=== PATIENT | female | born 1940 | race Caucasian/White ===

== ENCOUNTER 2017-01-25 12:08 | Emergency (ER) | payer OTHER ==
[~2017-01-25] VITALS: Ht 154.9 cm; Wt 58.9 kg
[~2017-01-25 12:08] MED LIST: ABAC1TAB7 PO; ABAC300T9 PO; ALBU18HF INH; AMOX1TAB64 PO; BENZ100C PO; FERR325T20 PO; FERR325T75 PO; FLUT1AER INH; GLIP5TAB10 PO; HYDR-3307 PO; INSU100I13 SQ; INSU100I18 SQ; IPRA3AMP NPPB; LACT10SO28 PO; NICO1PAT10 TD; OMEP40CA6 PO; PRAV20TA2 PO; PRED-402 PO; PROP10TA PO; RALT400T PO; SODI650T PO; SPIR50TA2 PO; TIOT18CA INH; [UNRECOGNIZED DRUG - CODE] PO
[2017-01-25] MEDS ORDERED: ALBUTEROL/IPRATROPIUM 2.5MG/0.5MG, 3 ML NPPB SCH (13:00)
[2017-01-25 14:01] LABS: BLOOD UREA NITROGEN 12 mg/dL (7-18)
[2017-01-25 14:13] LABS: ANISOCYTOSIS 1+; POLYCHROMASIA 1+
[2017-01-25 14:14] LABS: OVALOCYTES 1+
[2017-01-25 14:15] LABS: LARGE PLATELETS 1+
[2017-01-25] MEDS ORDERED: ALBUTEROL/IPRATROPIUM 2.5MG/0.5MG, 3 ML ONE (15:29)
[2017-01-25 16:02] VITALS: BP 156/74
== END 2017-01-25 16:37 | disposition home or self-care (01) ==
LOC: ED 16:00
DX: J44.1 Chronic obstructive pulmonary disease with (acute) exacerbation (principal); E11.65 Type 2 diabetes mellitus with hyperglycemia; I10 Essential (primary) hypertension; Z88.8 Allergy status to other drugs, medicaments and biological substances
CPT/HCPCS: 36415; 71020; 80048; 82040; 83605; 85025; 87040; 93005; 94640; 99285; J7512; J7620

== ENCOUNTER → 2019-02-25 | Outpatient (CLI) | payer MEDICAID, MEDICARE ==
[~2019-02-25] MED LIST changes: +FERR325T18 PO; -FERR325T20 PO; -IPRA3AMP NPPB; +IPRA3AMP30 NPPB; +NICO-485 TD; +NICO-486 TD; -NICO1PAT10 TD; -PROP10TA PO; +PROP10TA16 PO; -SPIR50TA2 PO; +SPIR50TA4 PO
== END | disposition home or self-care (01) ==
LOC: RAD 14:24
PROVIDERS: ATTEND Nurse Practitioner Adult Health
DX: M79.89 Other specified soft tissue disorders (principal); M79.605 Pain in left leg

== ENCOUNTER 2019-10-30 11:54 | Inpatient (IN) | payer MEDICARE ==
[~2019-10-30] VITALS: Ht 154.9 cm; Wt 61.7 kg
[~2019-10-30 11:54] MED LIST changes: +CEFD300C37 PO; +FURO40TA6 PO; -HYDR-3307 PO; +HYDR-36 PO; +INSU100I11 SQ-INSULIN; +INSU100I13 SQ-INSULIN; +LIRA0.6P INJ; +OMEP-110 PO; +OMEP40CA42 PO; -OMEP40CA6 PO; +POTA99TA24 PO; +PROP20TA PO
--- NOTE | 2019-10-30 12:00 | NUR ---
pt BIB [facility] from home c/o s/o hematemesis today. pt was recently hospitalized for same. pt reports that she is feeling tired but denies pain. some nause, bu no vomiting at this time. Dr. Bernal at bedside for eval and reports that pt is guiac+. pt is pale warm and dry. HIV+
[2019-10-30] MEDS ORDERED: PANTOPRAZOLE 80 MG in SODIUM CHLORIDE 0.9% 100 ML IV SCH (12:30)
[2019-10-30] MEDS ORDERED: OCTREOTIDE 500 MCG in SODIUM CHLORIDE 0.9% 99 ML IV PRN (12:30)
[2019-10-30] MEDS ORDERED: PANTOPRAZOLE 80 MG in SODIUM CHLORIDE 0.9% 50 ML IVPB ONE (12:30)
[2019-10-30] MEDS ORDERED: CEFTRIAXONE PMX 1GM/50ML 50 ML IV ONE (12:30)
[2019-10-30] MEDS ORDERED: SODIUM CHLORIDE FLUSH 10ML SYR IVF ONE (12:30)
[2019-10-30] MEDS ORDERED: OCTREOTIDE 100MCG/ML, 1ML (0.1MG/ML) IV ONE (12:30)
[2019-10-30 12:32] LABS: MEAN CORPUSCULAR HEMOGLOBIN 29.8 pg (27.0-34.8); MEAN CORPUSCULAR HGB CONC 32.9 g/dL (32.4-35.8); MEAN CORPUSCULAR VOLUME 90.4 fL (80-100); MEAN PLATELET VOLUME 10.8 fL (7.4-10.4); PLATELET COUNT 102 x10^3/uL (130-400); RED CELL DISTRIBUTION WIDTH 16.3 % (9.6-15.2)
[2019-10-30 12:40] LABS: INTERNATIONAL NORMALIZED RATIO 1.07 (0.93-1.1); PROTHROMBIN TIME 11.3 Seconds (9.6-11.5)
[2019-10-30 12:43] LABS: ANION GAP 9 mmol/L (5-15); CALCIUM 6.8 mg/dL (8.5-10.1); CHLORIDE 113 mmol/L (98-107)
[2019-10-30] MEDS ORDERED: CEFTRIAXONE PMX 1GM/50ML 50 ML ONE (12:43)
--- NOTE | 2019-10-30 12:59 | NUR ---
pt is sleeping. easily arousable. ABX infusing
[2019-10-30 13:00] LABS: BASOPHILS # (AUTO) 0.04 x10^3/uL (0-0.1); BASOPHILS % (AUTO) 1 % (0-1); EOSINOPHILS # (AUTO) 0.04 x10^3/uL (0-0.4); EOSINOPHILS % (AUTO) 1 % (1-7); LYMPHOCYTES % (AUTO) 19 % (22-44); MD SCAN; MONOCYTES # (AUTO) 0.41 x10^3/uL (0.2-0.8); MONOCYTES % (AUTO) 7 % (2-9); NEUTROPHILS # (AUTO) 4.24 x10^3/uL (1.8-6.8); NEUTROPHILS % (AUTO) 73 % (42-75)
--- NOTE | 2019-10-30 13:02 | NUR ---
pt to be admitted. report to Mai JIMENEZ
[2019-10-30 13:03] LABS: ALANINE AMINOTRANSFERASE 26 U/L (12-78); ALKALINE PHOSPHATASE 228 U/L (45-117); BILIRUBIN,TOTAL 0.6 mg/dL (0.2-1.0); CREATININE 1.37 mg/dL (0.55-1.02); TOTAL PROTEIN 5.2 g/dL (6.4-8.2)
[2019-10-30] MEDS ORDERED: ONDANSETRON ODT 4 MG PO PRN (13:30)
[2019-10-30] MEDS ORDERED: ONDANSETRON 2MG/ML, 2ML IVPush PRN (13:30)
[2019-10-30] MEDS ORDERED: ACETAMINOPHEN 325 MG TABLET PO PRN (13:30)
--- NOTE | 2019-10-30 13:33 | NUR ---
TASK RN: REPORT TO TONY MISTRY ON MED TELE
[2019-10-30] MEDS ORDERED: HYDROcodone/APAP 10/325 MG TABLET PO PRN (14:00)
[2019-10-30] MEDS ORDERED: POTASSIUM CHLORIDE 20 MEQ TAB.ER.PRT PO ONE (15:07)
[2019-10-30] MEDS: INSULIN LISPRO 100 UNITS/ML, PEN SQ-INSULIN SCH ×2 (16:00→20:55)
[2019-10-30] MEDS: LACTOBACILLUS CHEW TABLET PO SCH ×2 (17:19→20:54)
[2019-10-30] MEDS: LACTATED RINGERS 1,000 ML IV SCH (17:24)
[2019-10-30 17:29] VITALS: BP 105/54
[2019-10-30] MEDS: PROPRANOLOL 20 MG TABLET PO SCH (17:58)
[2019-10-30 19:20] VITALS: BP 98/58
[2019-10-30] MEDS ORDERED: INSULIN GLARGINE 100 UNITS/ML, PEN SQ-INSULIN SCH ×2 (21:00)
[2019-10-30 22:38] LABS: MEAN CORPUSCULAR HEMOGLOBIN 29.6 pg (27.0-34.8); MEAN CORPUSCULAR VOLUME 89.9 fL (80-100); RED BLOOD COUNT 2.24 x10^6/uL (3.82-5.3); RED CELL DISTRIBUTION WIDTH 15.6 % (9.6-15.2)
[2019-10-30 22:54] LABS: PLATELET COUNT 70 x10^3/uL (130-400)
[2019-10-30 23:01] LABS: MD YES
[2019-10-30 23:08] LABS: EOS#(MANUAL) 0.06 x10^3/uL (0.0-0.4); EOS% (MANUAL) 2 % (1-7); LYMPH#(MANUAL) 0.51 x10^3/uL (1-3.4); LYMPHS% (MANUAL) 17 % (22-44); METAMYELOCYTES# (MANUAL) 0.03 x10^3/uL (0-0); METAMYELOCYTES% (MANUAL) 1 % (0-1); MONOS#(MANUAL) 0.03 x10^3/uL (0.3-2.7); MONOS% (MANUAL) 1 % (2-9); MYELOCYTES# (MANUAL) 0.03 x10^3/uL (0-0); MYELOCYTES% (MANUAL) 1 % (0-0); REACTIVE LYMPHS # (MANUAL) 0.18 x10^3/uL (0-0); REACTIVE LYMPHS % (MANUAL) 6 % (0-0); SEG#(MANUAL) 2.16 x10^3/uL (1.8-6.8); SEGS% (MANUAL) 72 % (42-75)
[2019-10-30 23:09] LABS: ANISOCYTOSIS 1+
[2019-10-30 23:10] LABS: <PLATELET ESTIMATE> DECREASED; GIANT PLATELETS 1+; POLYCHROMASIA 1+; TEAR DROPS 1+
[2019-10-31] VITALS (9 sets, daily range): BP systolic 93–113; BP diastolic 50–67
[2019-10-31] MEDS ORDERED: PANTOPRAZOLE 80 MG in SODIUM CHLORIDE 0.9% 100 ML IV ONE (03:00)
[2019-10-31] MEDS: PROPRANOLOL 20 MG TABLET PO SCH ×2 (05:19→18:14)
[2019-10-31] MEDS ORDERED: OMEPRAZOLE 20 MG CAPSULE.DR PO SCH (06:00)
[2019-10-31 06:07] LABS: CALCIUM 6.9 mg/dL (8.5-10.1); CHLORIDE 116 mmol/L (98-107)
[2019-10-31 06:08] LABS: MEAN CORPUSCULAR HEMOGLOBIN 29.7 pg (27.0-34.8); MEAN CORPUSCULAR VOLUME 87.3 fL (80-100); MEAN PLATELET VOLUME 10.6 fL (7.4-10.4); PLATELET COUNT 67 x10^3/uL (130-400); RED BLOOD COUNT 3.19 x10^6/uL (3.82-5.3); RED CELL DISTRIBUTION WIDTH 16.6 % (9.6-15.2)
[2019-10-31 06:14] LABS: % IRON SATURATION 18 % (20-55); ANION GAP 8 mmol/L (5-15); CREATININE 1.35 mg/dL (0.55-1.02); IRON LEVEL 47 mcg/dL (50-170); TOTAL IRON BINDING CAPACITY 255 mcg/dL (250-450)
[2019-10-31 06:16] LABS: MD YES
[2019-10-31 06:17] LABS: BAND#(MANUAL) 0.07 x10^3/uL; BANDS%(MANUAL) 2 % (0-7); EOS#(MANUAL) 0.04 x10^3/uL (0.0-0.4); EOS% (MANUAL) 1 % (1-7); LYMPH#(MANUAL) 0.84 x10^3/uL (1-3.4); LYMPHS% (MANUAL) 24 % (22-44); MONOS#(MANUAL) 0.25 x10^3/uL (0.3-2.7); MONOS% (MANUAL) 7 % (2-9); REACTIVE LYMPHS # (MANUAL) 0.11 x10^3/uL (0-0); REACTIVE LYMPHS % (MANUAL) 3 % (0-0); SEG#(MANUAL) 2.21 x10^3/uL (1.8-6.8); SEGS% (MANUAL) 63 % (42-75)
[2019-10-31 06:18] LABS: ANISOCYTOSIS 1+; OVALOCYTES 1+; POLYCHROMASIA 1+
[2019-10-31 06:19] LABS: <PLATELET ESTIMATE> DECREASED; LARGE PLATELETS 1+; TEAR DROPS 1+
[2019-10-31] MEDS: INSULIN LISPRO 100 UNITS/ML, PEN SQ-INSULIN SCH ×4 (07:00→19:52)
[2019-10-31] MEDS: LACTATED RINGERS 1,000 ML IV SCH (07:30)
[2019-10-31] MEDS ORDERED: DEXTROSE 50%, 50ML SYRINGE IVPush ONE (08:00)
[2019-10-31] MEDS ORDERED: POTASSIUM CHLORIDE 10% 40 MEQ/30 ML UDC PO ONE (08:00)
[2019-10-31] MEDS: POTASSIUM CHLORIDE 20 MEQ TAB.ER.PRT PO SCH (08:54)
[2019-10-31] MEDS: LACTOBACILLUS CHEW TABLET PO SCH ×3 (08:54→20:57)
[2019-10-31] MEDS: RALTEGRAVIR 400 MG TABLET PO SCH (08:54)
[2019-10-31] MEDS: LIRAGLUTIDE 1.2 MG SQ SCH (08:59)
[2019-10-31] MEDS: CEFTRIAXONE PMX 1GM/50ML 50 ML IV SCH (13:00)
[2019-10-31] MEDS: PANTOPRAZOLE 80 MG in SODIUM CHLORIDE 0.9% 100 ML IV SCH ×2 (13:00→22:42)
[2019-10-31] MEDS ORDERED: DEXTROSE 50%, 50ML SYRINGE IV ONE (17:00)
[2019-10-31] MEDS: D5%-0.45% NACL 1,000 ML IV SCH (18:14)
[2019-10-31] MEDS: OCTREOTIDE 500 MCG in SODIUM CHLORIDE 0.9% 99 ML IV PRN (22:42)
[2019-11-01 00:48] VITALS: BP 105/62
[2019-11-01] MEDS: PROPRANOLOL 20 MG TABLET PO SCH ×2 (05:33→17:28)
[2019-11-01 06:53] LABS: MEAN CORPUSCULAR HEMOGLOBIN 29.2 pg (27.0-34.8); MEAN CORPUSCULAR HGB CONC 33.6 g/dL (32.4-35.8); MEAN PLATELET VOLUME 10.6 fL (7.4-10.4); PLATELET COUNT 69 x10^3/uL (130-400); RED BLOOD COUNT 3.23 x10^6/uL (3.82-5.3); RED CELL DISTRIBUTION WIDTH 17.2 % (9.6-15.2)
[2019-11-01 06:55] LABS: ANION GAP 6 mmol/L (5-15); CALCIUM 6.6 mg/dL (8.5-10.1); CHLORIDE 118 mmol/L (98-107)
[2019-11-01 06:57] LABS: CREATININE 1.48 mg/dL (0.55-1.02)
[2019-11-01 07:05] VITALS: BP 112/61
[2019-11-01 07:16] LABS: BASOPHILS # (AUTO) 0.01 x10^3/uL (0-0.1); BASOPHILS % (AUTO) 0 % (0-1); EOSINOPHILS # (AUTO) 0.06 x10^3/uL (0-0.4); EOSINOPHILS % (AUTO) 2 % (1-7); LYMPHOCYTES # (AUTO) 1.07 x10^3/uL (1-3.4); LYMPHOCYTES % (AUTO) 31 % (22-44); MD SCAN; MONOCYTES # (AUTO) 0.46 x10^3/uL (0.2-0.8); MONOCYTES % (AUTO) 13 % (2-9); NEUTROPHILS # (AUTO) 1.87 x10^3/uL (1.8-6.8); NEUTROPHILS % (AUTO) 54 % (42-75)
[2019-11-01] MEDS: INSULIN LISPRO 100 UNITS/ML, PEN SQ-INSULIN SCH ×4 (07:54→20:09)
[2019-11-01] MEDS: LIRAGLUTIDE 1.2 MG SQ SCH (08:12)
[2019-11-01] MEDS: OCTREOTIDE 500 MCG in SODIUM CHLORIDE 0.9% 99 ML IV PRN ×2 (08:17→17:29)
[2019-11-01] MEDS: PANTOPRAZOLE 80 MG in SODIUM CHLORIDE 0.9% 100 ML IV SCH ×2 (08:17→17:29)
[2019-11-01] MEDS: RALTEGRAVIR 400 MG TABLET PO SCH (08:17)
[2019-11-01] MEDS: LACTOBACILLUS CHEW TABLET PO SCH ×3 (08:17→20:43)
[2019-11-01] MEDS: POTASSIUM CHLORIDE 20 MEQ TAB.ER.PRT PO SCH (08:18)
[2019-11-01] MEDS: CEFTRIAXONE PMX 1GM/50ML 50 ML IV SCH (12:41)
[2019-11-01 14:20] VITALS: BP 127/61
[2019-11-01] MEDS: D5%-0.45% NACL 1,000 ML IV SCH (17:29)
[2019-11-01 19:04] VITALS: BP 132/64
[2019-11-01] MEDS ORDERED: LORazepam 0.5MG TABLET PO PRN (21:30)
[2019-11-01] MEDS ORDERED: LORazepam 0.5MG TABLET ONE (21:32)
[2019-11-02 00:10] VITALS: BP 142/89
[2019-11-02] MEDS ORDERED: ZIPRASIDONE 20 MG INJ IM ONE ×2 (00:31→01:00)
[2019-11-02 04:56] LABS: MEAN CORPUSCULAR HEMOGLOBIN 28.7 pg (27.0-34.8); MEAN CORPUSCULAR HGB CONC 32.6 g/dL (32.4-35.8); MEAN CORPUSCULAR VOLUME 87.9 fL (80-100); MEAN PLATELET VOLUME 11.1 fL (7.4-10.4); PLATELET COUNT 69 x10^3/uL (130-400); RED BLOOD COUNT 3.53 x10^6/uL (3.82-5.3)
[2019-11-02 04:57] LABS: ANION GAP 7 mmol/L (5-15); CALCIUM 6.9 mg/dL (8.5-10.1); CHLORIDE 121 mmol/L (98-107); CREATININE 1.49 mg/dL (0.55-1.02)
[2019-11-02] MEDS: PROPRANOLOL 20 MG TABLET PO SCH ×3 (05:28→20:58)
[2019-11-02] MEDS: PANTOPRAZOLE 80 MG in SODIUM CHLORIDE 0.9% 100 ML IV SCH ×2 (05:28→20:58)
[2019-11-02] MEDS: OCTREOTIDE 500 MCG in SODIUM CHLORIDE 0.9% 99 ML IV PRN ×2 (05:28→16:26)
[2019-11-02 05:45] LABS: BASOPHILS # (AUTO) 0.04 x10^3/uL (0-0.1); BASOPHILS % (AUTO) 1 % (0-1); EOSINOPHILS # (AUTO) 0.04 x10^3/uL (0-0.4); EOSINOPHILS % (AUTO) 1 % (1-7); LYMPHOCYTES # (AUTO) 1.02 x10^3/uL (1-3.4); LYMPHOCYTES % (AUTO) 31 % (22-44); MD SCAN; MONOCYTES # (AUTO) 0.31 x10^3/uL (0.2-0.8); MONOCYTES % (AUTO) 9 % (2-9); NEUTROPHILS # (AUTO) 1.91 x10^3/uL (1.8-6.8); NEUTROPHILS % (AUTO) 58 % (42-75)
[2019-11-02] MEDS: INSULIN LISPRO 100 UNITS/ML, PEN SQ-INSULIN SCH ×4 (07:10→20:59)
[2019-11-02 07:43] VITALS: BP 147/89
[2019-11-02 07:53] VITALS: BP 108/70
[2019-11-02] MEDS: LIRAGLUTIDE 1.2 MG SQ SCH (09:06)
[2019-11-02] MEDS: RALTEGRAVIR 400 MG TABLET PO SCH (09:40)
[2019-11-02] MEDS: POTASSIUM CHLORIDE 20 MEQ TAB.ER.PRT PO SCH (09:40)
[2019-11-02] MEDS: LACTOBACILLUS CHEW TABLET PO SCH ×3 (09:40→20:58)
[2019-11-02 12:38] VITALS: BP 154/77
[2019-11-02] MEDS: CEFTRIAXONE PMX 1GM/50ML 50 ML IV SCH (13:04)
[2019-11-02] MEDS: LACTULOSE 20 GM/30 ML UDC PO SCH (13:04)
[2019-11-02 18:17] VITALS: BP 146/81
[2019-11-03 00:30] VITALS: BP 124/64
[2019-11-03] MEDS: OCTREOTIDE 500 MCG in SODIUM CHLORIDE 0.9% 99 ML IV PRN (04:54)
[2019-11-03 06:11] LABS: MEAN CORPUSCULAR HEMOGLOBIN 28.5 pg (27.0-34.8); MEAN CORPUSCULAR HGB CONC 32.9 g/dL (32.4-35.8); MEAN CORPUSCULAR VOLUME 86.8 fL (80-100); MEAN PLATELET VOLUME 11.1 fL (7.4-10.4); PLATELET COUNT 90 x10^3/uL (130-400); RED BLOOD COUNT 3.54 x10^6/uL (3.82-5.3); RED CELL DISTRIBUTION WIDTH 16.7 % (9.6-15.2)
[2019-11-03 06:17] LABS: ANION GAP 10 mmol/L (5-15); CALCIUM 7.2 mg/dL (8.5-10.1); CHLORIDE 116 mmol/L (98-107); CREATININE 1.51 mg/dL (0.55-1.02)
[2019-11-03 06:54] VITALS: BP 131/73
[2019-11-03] MEDS: PANTOPRAZOLE 80 MG in SODIUM CHLORIDE 0.9% 100 ML IV SCH ×2 (07:14→16:18)
[2019-11-03 07:26] LABS: BASOPHILS # (AUTO) 0.03 x10^3/uL (0-0.1); BASOPHILS % (AUTO) 1 % (0-1); EOSINOPHILS # (AUTO) 0.09 x10^3/uL (0-0.4); EOSINOPHILS % (AUTO) 2 % (1-7); LYMPHOCYTES # (AUTO) 1.45 x10^3/uL (1-3.4); LYMPHOCYTES % (AUTO) 28 % (22-44); MD SCAN; MONOCYTES # (AUTO) 0.45 x10^3/uL (0.2-0.8); MONOCYTES % (AUTO) 9 % (2-9); NEUTROPHILS % (AUTO) 61 % (42-75)
[2019-11-03] MEDS: INSULIN LISPRO 100 UNITS/ML, PEN SQ-INSULIN SCH ×4 (08:58→21:50)
[2019-11-03] MEDS: LACTULOSE 20 GM/30 ML UDC PO SCH (08:58)
[2019-11-03] MEDS: PROPRANOLOL 20 MG TABLET PO SCH ×3 (08:59→16:19)
[2019-11-03] MEDS: RALTEGRAVIR 400 MG TABLET PO SCH (08:59)
[2019-11-03] MEDS: LACTOBACILLUS CHEW TABLET PO SCH ×3 (08:59→21:50)
[2019-11-03] MEDS: POTASSIUM CHLORIDE 20 MEQ TAB.ER.PRT PO SCH (08:59)
[2019-11-03] MEDS: LIRAGLUTIDE 1.2 MG SQ SCH (09:00)
[2019-11-03 12:08] VITALS: BP 147/62
[2019-11-03] MEDS: RIFAXIMIN 550 MG TABLET PO SCH ×2 (12:29→21:50)
[2019-11-03] MEDS: CEFTRIAXONE PMX 1GM/50ML 50 ML IV SCH (12:30)
[2019-11-03 18:30] VITALS: BP 142/59
[2019-11-04 01:08] VITALS: BP 125/69
[2019-11-04] MEDS: PANTOPRAZOLE 80 MG in SODIUM CHLORIDE 0.9% 100 ML IV SCH ×2 (05:30→16:19)
[2019-11-04 06:08] LABS: BASOPHILS # (AUTO) 0.04 x10^3/uL (0-0.1); BASOPHILS % (AUTO) 1 % (0-1); EOSINOPHILS # (AUTO) 0.08 x10^3/uL (0-0.4); EOSINOPHILS % (AUTO) 1 % (1-7); LYMPHOCYTES # (AUTO) 2.46 x10^3/uL (1-3.4); LYMPHOCYTES % (AUTO) 33 % (22-44); MD NO; MEAN CORPUSCULAR HEMOGLOBIN 28.8 pg (27.0-34.8); MEAN CORPUSCULAR HGB CONC 33.1 g/dL (32.4-35.8); MEAN CORPUSCULAR VOLUME 86.8 fL (80-100); MONOCYTES # (AUTO) 0.71 x10^3/uL (0.2-0.8); MONOCYTES % (AUTO) 9 % (2-9); NEUTROPHILS # (AUTO) 4.27 x10^3/uL (1.8-6.8); NEUTROPHILS % (AUTO) 57 % (42-75); PLATELET COUNT 101 x10^3/uL (130-400); RED BLOOD COUNT 3.46 x10^6/uL (3.82-5.3); RED CELL DISTRIBUTION WIDTH 16.9 % (9.6-15.2)
[2019-11-04 06:20] VITALS: BP 147/63
[2019-11-04 06:24] LABS: ANION GAP 8 mmol/L (5-15); CALCIUM 7.4 mg/dL (8.5-10.1); CHLORIDE 115 mmol/L (98-107); CREATININE 1.43 mg/dL (0.55-1.02)
[2019-11-04] MEDS: LIRAGLUTIDE 1.2 MG SQ SCH (09:00)
[2019-11-04] MEDS: LACTOBACILLUS CHEW TABLET PO SCH ×3 (09:15→19:56)
[2019-11-04] MEDS: LACTULOSE 20 GM/30 ML UDC PO SCH (09:15)
[2019-11-04] MEDS: PROPRANOLOL 20 MG TABLET PO SCH ×3 (09:16→16:19)
[2019-11-04] MEDS: RIFAXIMIN 550 MG TABLET PO SCH ×2 (09:16→19:56)
[2019-11-04] MEDS: INSULIN LISPRO 100 UNITS/ML, PEN SQ-INSULIN SCH ×4 (09:16→21:00)
[2019-11-04] MEDS: POTASSIUM CHLORIDE 20 MEQ TAB.ER.PRT PO SCH (09:16)
[2019-11-04] MEDS: RALTEGRAVIR 400 MG TABLET PO SCH (09:16)
[2019-11-04] MEDS: CEFTRIAXONE PMX 1GM/50ML 50 ML IV SCH (12:08)
[2019-11-04 14:20] VITALS: BP 135/73
[2019-11-04 19:29] VITALS: BP 137/76
[2019-11-05 00:54] VITALS: BP 127/72
[2019-11-05] MEDS: PANTOPRAZOLE 80 MG in SODIUM CHLORIDE 0.9% 100 ML IV SCH ×2 (02:13→12:59)
[2019-11-05 06:15] VITALS: BP 151/62
[2019-11-05] MEDS: LIRAGLUTIDE 1.2 MG SQ SCH (09:00)
[2019-11-05] MEDS: RALTEGRAVIR 400 MG TABLET PO SCH (09:11)
[2019-11-05] MEDS: LACTOBACILLUS CHEW TABLET PO SCH (09:11)
[2019-11-05] MEDS: POTASSIUM CHLORIDE 20 MEQ TAB.ER.PRT PO SCH (09:11)
[2019-11-05] MEDS: PROPRANOLOL 20 MG TABLET PO SCH ×2 (09:11→12:35)
[2019-11-05] MEDS: RIFAXIMIN 550 MG TABLET PO SCH (09:12)
[2019-11-05] MEDS: INSULIN LISPRO 100 UNITS/ML, PEN SQ-INSULIN SCH ×3 (09:12→16:00)
[2019-11-05] MEDS: LACTULOSE 20 GM/30 ML UDC PO SCH (09:12)
[2019-11-05 12:00] VITALS: BP 140/57
[2019-11-05] MEDS: CEFTRIAXONE PMX 1GM/50ML 50 ML IV SCH (12:35)
[2019-11-05] MEDS ORDERED: PROP20TA PO (16:33)
[2019-11-05] MEDS ORDERED: RIFA550T4 PO (16:33)
[2019-11-05] MEDS ORDERED: LACT20SO13 PO (16:33)
[2019-11-05] MEDS ORDERED: PANT40TA3 PO (16:33)
[2019-11-05] MEDS ORDERED: AMOX1TAB64 PO (16:33)
== END 2019-11-05 17:52 | disposition home health service (06) | DRG 432 ==
LOC: ED 12:18 → UNDOADMIN 12:48 → EDIP 12:48 → 4WST 14:55
PROVIDERS: ADMIT Internal Medicine; ATTEND Hospitalist
PROC: 30233N1 Transfusion of Nonautologous Red Blood Cells into Peripheral Vein, Percutaneous Approach (ICD-10-PCS; principal; 2019-10-31)
DX: K74.60 Unspecified cirrhosis of liver (principal); I85.11 Secondary esophageal varices with bleeding; I81 Portal vein thrombosis; D62 Acute posthemorrhagic anemia; K92.0 Hematemesis; D68.9 Coagulation defect, unspecified; N17.9 Acute kidney failure, unspecified; K76.6 Portal hypertension; K92.1 Melena; I86.4 Gastric varices; K72.90 Hepatic failure, unspecified without coma; K75.81 Nonalcoholic steatohepatitis (NASH); D69.59 Other secondary thrombocytopenia; E87.6 Hypokalemia; E11.22 Type 2 diabetes mellitus with diabetic chronic kidney disease; E83.51 Hypocalcemia; F17.210 Nicotine dependence, cigarettes, uncomplicated; I12.9 Hypertensive chronic kidney disease with stage 1 through stage 4 chronic kidney disease, or unspecified chronic kidney disease; Z96.89 Presence of other specified functional implants; J43.9 Emphysema, unspecified; N18.9 Chronic kidney disease, unspecified; Z79.4 Long term (current) use of insulin; Z83.3 Family history of diabetes mellitus; Z88.8 Allergy status to other drugs, medicaments and biological substances
CPT/HCPCS: 36415; 80048; 80053; 82140; 82330; 82962; 83540; 83550; 83735; 85014; 85018; 85025; 85610; 86850; 86900; 86923; 93005; 99291; G0378; J0696; J2354; J3486; C9113; J1815; J7120; P9016